=== PATIENT | female | born 1965 | race Caucasian/White ===

== ENCOUNTER 2021-01-09 14:14 | Emergency (ER) | payer OTHER, SELFPAY ==
--- NOTE | ~2021-01-09 | US_ITS ---
EXAMINATION: US VENOUS ULTRASOUND WITH DOPPLER LOWER EXTREMITY, RIGHT CLINICAL INFORMATION: Calf pain. Evaluate for DVT. COMPARISON: None TECHNIQUE: Ultrasound of the deep veins is performed from the hip to the calf with compression sonography and color and pulse Doppler assessment. Spectral analysis with color-flow imaging is performed. FINDINGS: There is normal venous compression and respiratory variation and augmented flow. The visualized common femoral vein, superficial femoral vein, profunda femoral vein, popliteal vein, and the trifurcation region shows no evidence of deep venous thrombosis. There is no significant popliteal fossa cyst. If the patient's symptoms persist, followup ultrasound in 5 days 7 days might be of value to exclude proximal propagation from a non-visualized calf vein. US/US venous duplex LE RT IMPRESSION: No DVT demonstrated in the right lower extremity.
[2021-01-09 14:23] VITALS: BP 104/65; PULSE 74; RESP 16; O2SAT 98; BMI 38.7
--- NOTE | 2021-01-09 16:26 | ED.GENADULT ---
HPI - General Adult General Chief complaint: Extremity Injury, Lower Stated complaint: rt leg pain Time Seen by Provider: 01/09/21 15:04 History of Present Illness HPI narrative: Patient complains of right lower leg pain as well as chronic sciatica pain radiating into the right leg but right now the new pain in the lower right leg is different from her previous sciatica and feels worse in the back of the right lower leg, she has no new injury no numbness or weakness, no fevers no swelling Related Data Previous Rx's Medication Instructions Recorded cyclobenzaprine 5 mg tablet 5 mg PO TID PRN #14 tab 01/09/21 ibuprofen 600 mg tablet 600 mg PO Q6H PRN #20 tab 01/09/21 oxycodone-acetaminophen 5 mg-325 1 tab PO Q4-6H PRN #10 tab 01/09/21 mg tablet (Percocet) Allergies Allergy/AdvReac Type Severity Reaction Status Date / Time No Known Allergies Allergy Unverified 01/27/20 14:47 Review of Systems Review of Systems: Positive for back pain and right lower leg pain Negatives are no fever no chills no dizziness no weakness no headache no neck pain no chest pain no shortness of breath no abdominal pain no nausea or vomiting, no dysuria no incontinence no changes to bowel or bladder no skin rash Yes all other systems are reviewed and are negative PMFSH Past Medical History Source: nursing notes reviewed Medical History (Updated 01/10/21 @ 00:02 by Aneesh Calhoun) Asthma Sleep apnea Social History Social History Advance Directives: Yes Advance Directives Information Provided: Yes Advance Directives on File: No Physical Exam Vital Signs: Vital Signs: Last Vital Signs Pulse 74 01/09/21 14:23 Resp 16 01/09/21 14:23 BP 104/65 01/09/21 14:23 Pulse Ox 98 01/09/21 14:23 Body Mass Index 38.7 General appearance no acute distress Head is normocephalic atraumatic Neck is supple Respiratory no distress Chest clear to auscultation bilateral Abdomen soft nontender The back had right lower lumbar paraspinal tenderness and right gluteal tenderness, skin was normal, pain reproduced with movement, no focal bony tenderness Extremities full range of motion x4 The right lower extremity was normal in appearance with full range of motion in all joints, skin was normal, there was no swelling but there was right posterior lower leg tenderness Neuro no focal motor sensory deficit Skin no rash Course Course Course Narrative: Ultrasound of the right leg was negative for DVT There is no sign of any skin infection in the right leg We are treating her sciatica which may be the cause of this pain with analgesics and muscle relaxer She is advised to follow with primary doctor and if right lower leg worsens in any way or get swollen she can return any time for re-evaluation Discharge Plan Discharge Clinical Impression: Sciatica, Pain in right leg Patient Disposition: Home, Self-Care Additional Instructions: Ultrasound is negative for blood clot Pain is likely from your sciatica radiating into the right leg Follow closely with primary care doctor for further evaluation Return any time if worse Prescriptions: New oxycodone-acetaminophen [Percocet] 5-325 mg tablet 1 tab PO Q4-6H PRN (Reason: pain) Qty: 10 RF: 0 ibuprofen 600 mg tablet 600 mg PO Q6H PRN (Reason: pain) Qty: 20 RF: 0 cyclobenzaprine 5 mg tablet 5 mg PO TID PRN (Reason: muscle spasm) Qty: 14 RF: 0 Interventions: ED Discharge Assessment Last Done: 01/09/21 16:48 Discharge Date/Time: 01/09/21 16:49
[2021-01-09] MEDS: Ketorolac Tromethamine 15 MG/ML VIAL 30 MG IM (16:44)
== END 2021-01-09 16:49 | disposition home or self-care (01) ==
PROVIDERS: Emergency Provider Emergency Medicine; PCP Internal Medicine
DX: M54.41 Lumbago with sciatica, right side (principal); M79.661 Pain in right lower leg
CPT/HCPCS: 93971; 96372; 99283; 99284; J1885

== ENCOUNTER 2021-03-28 12:19 | Emergency (ER) | payer OTHER, SELFPAY ==
--- NOTE | ~2021-03-28 | CT_ITS ---
EXAMINATION: CT ABDOMEN AND PELVIS WITHOUT CONTRAST CLINICAL INFORMATION: Left flank pain with dark urine COMPARISON: December 28, 2018 TECHNIQUE: Multidetector volumetric imaging was performed from the superior aspect of the liver through the pubic symphysis. Sagittal and coronal reformatted images were obtained on the technologist's workstation. This CT examination was performed using dose optimization techniques as appropriate, variously including the following: *Automated exposure control *Adjustment of mA and/or kV according to patient size (this includes techniques or standardized protocols for targeted exams where dose is matched to indication/reason for exam; i.e. extremities or head) *Use of iterative reconstruction technique DLP: 740 mGy-cm FINDINGS: LUNG BASES: The visualized lung bases are unremarkable. No pleural or pericardial effusion. LIVER, GALLBLADDER, AND BILIARY TREE: There is a 6 mm low-density lesion seen within segment 6 of the liver which may represent a cyst. There is a 4 mm low-density lesion seen at the dome of the diaphragm which may represent a cyst. No intrahepatic bile duct dilatation is appreciated. The gallbladder is unremarkable with no evidence of radiopaque gallstones, gallbladder wall thickening, or obvious pericholecystic inflammatory changes. PANCREAS: Unremarkable. SPLEEN: Unremarkable. ADRENAL GLANDS: Unremarkable. KIDNEYS AND URETERS: The kidneys are normal in size, shape, and attenuation. No hydronephrosis, hydroureter, or calculi seen. No perinephric stranding. BLADDER: Unremarkable. GASTROINTESTINAL TRACT: No dilated loops of large or small bowel. No free air or free fluid. No evidence of acute diverticulitis. No evidence of acute appendicitis. ABDOMINAL WALL: No significant hernia is appreciated. LYMPH NODES: No lymphadenopathy appreciated. VASCULAR: Unremarkable. PELVIC VISCERA: Unremarkable. OSSEOUS STRUCTURES: No acute destructive bony lesions identified. CT/CT abdomen pelvis wo con IMPRESSION: No evidence of obstructive uropathy. No evidence of ileus or obstruction. No evidence of acute diverticulitis.
[2021-03-28 12:55] VITALS: BP 157/92; PULSE 79; RESP 18; TEMP 36.8; O2SAT 98; BMI 38.7
--- NOTE | 2021-03-28 13:18 | ED.ABDPAIN ---
HPI - Abdominal Pain General Chief Complaint: Abdominal Pain Stated Complaint: back pain Time Seen by Provider: 03/28/21 13:18 Source: patient Mode of arrival: ambulatory Limitations: no limitations History of Present Illness HPI narrative: left flank pain and abdominal pain with dark urine. Pain started yesterday, now increased pain. MD elicited complaint: abdominal pain and flank pain Onset (ago): day(s) Pain Consistency: intermittent Location: LLQ and L flank Severity: mild Quality: stabbing Associated symptoms: other (diarrhea) Related Data Previous Rx's Medication Instructions Recorded cyclobenzaprine 5 mg tablet 5 mg PO TID PRN #14 tab 01/09/21 ibuprofen 600 mg tablet 600 mg PO Q6H PRN #20 tab 01/09/21 oxycodone-acetaminophen 5 mg-325 1 tab PO Q4-6H PRN #10 tab 01/09/21 mg tablet (Percocet) naproxen 500 mg tablet (Naprosyn) 500 mg PO BID #20 tab 03/28/21 Allergies Allergy/AdvReac Type Severity Reaction Status Date / Time No Known Allergies Allergy Unverified 01/27/20 14:47 Review of Systems Constitutional: Reports no additional constitutional complaints Eyes: Reports no additional eye complaints Denies dizziness Cardiovascular: Reports no additional cardiovascular complaints Respiratory: Reports as per HPI Gastrointestinal: Reports no additional gastrointestinal complaints Genitourinary: Reports no additional female genitourinary complaints Musculoskeletal: Reports no additional musculoskeletal complaints Skin/Breast: Denies rash Reports system reviewed and no additional complaints, except as documented, Denies dizziness and Denies Sensory deficit (Neuro) Psychiatric: Denies anxiety Physical Exam Vital Signs: Vital Signs: Last Vital Signs Temp 97.9 F 03/28/21 15:12 Pulse 65 03/28/21 15:12 Resp 16 03/28/21 15:12 BP 130/55 L 03/28/21 15:12 Pulse Ox 99 03/28/21 15:12 Body Mass Index 38.7 Const: Other: appearing uncomfortable Nutritional Appearance: obese Orientation/consciousness: oriented to person and patient oriented x3 Limitations: no limitations HENMT: Head: Yes normal to inspection Ears: external ears normal General nose exam: Normal external nose present Mouth: Normal oral and palatal mucosa present and oropharynx normal Throat: Yes posterior oropharynx normal Eyes: General: appearance normal, both eyes and all related structures Neck: Other: supple Neck: Yes normal visual inspection Chest: Chest palpation & inspection: normal inspection of the chest Resp: Auscultation: clear to auscultation bilaterally Cardio: Jugular venous distension: no JVD Rate: regular rate Rhythm: regular rhythm Heart sounds: S1 normal heart sound present and S2 normal heart sound present GI: Other: abdominal exam completely nontender Inspection: Yes normal to inspection Palpation (GI): Soft to palpation, nontender and No hepatosplenomegaly present Auscultation: normal bowel sounds Back/Spine/Pelvis: Other: left CVAT Skin: General skin exam: no rashes or lesions noted Neuro: General: oriented to person and patient oriented x3 Cranial nerves: Yes CN's II-XII intact bilaterally Motor exam (neuro): 5/5 motor strength present throughout Sensory Exam: No Sensory deficit (Neuro) Extrem: General: Yes normal to inspection Psych: Appearance: grossly normal Course Reevaluation(s) Reevaluation #1: no evidence of UTI, renal colic or diverticulitis, will dc on nsaids Time: 15:47 MDM - Abdominal Pain Lab Data Labs: Lab Results 03/28/21 Range/Units 13:40 Urine Color YELLOW Urine Appearance CLEAR Urine pH 6.5 (5.0-8.0) Ur Specific [place] 1.015 (1.005-1.025) Urine Protein NEG (NEG-TRACE) MG/DL Urine Glucose (UA) NEG (NEG) MG/DL Urine Ketones NEG (NEG) MG/DL Urine Blood 1+ H (NEG) Urine Nitrite NEG (NEG) Ur Leukocyte Esterase NEG (NEG) Urine RBC 0-2 (0) /HPF Urine WBC 0-2 (0-4) /HPF Ur Squamous Epith Cells TRACE /LPF Urine Bacteria TRACE /LPF Imaging Data CT scan - abdomen: Radiologist's impression: IMPRESSION: No evidence of obstructive uropathy. ? No evidence of ileus or obstruction. ? No evidence of acute diverticulitis.? Discharge Plan Discharge Clinical Impression: Acute flank pain Abdominal pain Qualifiers: Abdominal location: left lower quadrant Qualified Code(s): R10.32 - Left lower quadrant pain Patient Disposition: Home, Self-Care Instructions: Abdominal Pain (ED), Flank Pain (ED) Prescriptions: New naproxen [Naprosyn] 500 mg tablet 500 mg PO BID Qty: 20 RF: 0 No Action oxycodone-acetaminophen [Percocet] 5-325 mg tablet 1 tab PO Q4-6H PRN (Reason: pain) Qty: 10 RF: 0 ibuprofen 600 mg tablet 600 mg PO Q6H PRN (Reason: pain) Qty: 20 RF: 0 cyclobenzaprine 5 mg tablet 5 mg PO TID PRN (Reason: muscle spasm) Qty: 14 RF: 0 Referrals: Physician,Unknown J [Primary Care Provider] - 1 week [facility] Past Medical History Medical History Asthma Sleep apnea Social History Social History Advance Directives: No Advance Directives Information Provided: Yes
[2021-03-28 13:19] VITALS: BP 151/79; PULSE 82; RESP 20; TEMP 36.6; O2SAT 100
[2021-03-28] MEDS: Ketorolac Tromethamine 60 MG/2 ML VIAL IM (13:40)
[2021-03-28 13:55] LABS: Appearance Urine CLEAR; Color Urine YELLOW; Glucose Urine UA NEG (NEG); Leukocyte Esterase Urine NEG (NEG); Nitrite Urine NEG (NEG); PH 6.5 (5.0-8.0); Specific Gravity - Urine 1.015 (1.005-1.025); UACC Culture Trigger NO; Urine Blood 1+ (NEG); Urine Ketones NEG (NEG); Urine Protein NEG (NEG-TRACE)
[2021-03-28 14:19] LABS: RBC Urine 0-2 /HPF (0); Squamous Epithelial Cell Urine TRACE /LPF; WBC Urine 0-2 /HPF (0-4)
[2021-03-28 14:20] LABS: Bacteria Urine TRACE /LPF
[2021-03-28 15:12] VITALS: BP 130/55; PULSE 65; RESP 16; TEMP 36.6; O2SAT 99
== END 2021-03-28 16:30 | disposition home or self-care (01) ==
PROVIDERS: Emergency Provider Emergency Medicine
DX: R10.32 Left lower quadrant pain (principal)
CPT/HCPCS: 74176; 81001; 81003; 96372; 99284; J1885

== ENCOUNTER 2021-08-11 19:43 | Emergency (ER) | payer OTHER, SELFPAY ==
--- NOTE | ~2021-08-11 | XR_ITS ---
EXAMINATION: XR CHEST CLINICAL INFORMATION: Shortness of breath COMPARISON: Chest radiograph 12/07/2016, CT abdomen and pelvis 03/28/2021 TECHNIQUE: Frontal view of the chest was obtained. FINDINGS: There is a question of a 1.6 cm long nodule overlying the anterior right third rib end. This may be a compilation of shadows, but the scan is recommended to exclude a mass lesion. No other significant abnormality is noted involving the heart, lungs, mediastinum, bony thorax or soft tissues. XR/XR chest 1V IMPRESSION: Question of lung nodule right middle lobe as described above. CT scan of the chest is recommended for further relation.
--- NOTE | ~2021-08-11 | CT_ITS ---
EXAMINATION: CT CHEST WITHOUT CONTRAST CLINICAL INFORMATION: Question nodularity COMPARISON: Chest film same day TECHNIQUE: Multidetector volumetric CT imaging of the chest was done. Axial MIP volume rendering provided. Sagittal and coronal reformatted images were obtained. This CT examination was performed using dose optimization techniques as appropriate, variously including the following: *Automated exposure control *Adjustment of mA and/or kV according to patient size (this includes techniques or standardized protocols for targeted exams where dose is matched to indication/reason for exam; i.e. extremities or head) *Use of iterative reconstruction technique DLP: 321 mGy-cm FINDINGS: The thoracic inlet is within normal limits. The axillary regions are unremarkable. Partially visualized upper abdominal structures within normal limits. Centrally some mildly prominent nodes are noted. No bulky adenopathy. This is a noncontrast study but the hilar regions do not appear pathologically enlarged. Imaging lung johnson. Right lung; Reticular nodular and groundglass opacities in the right midlung consistent with infiltrate. Below this level additional similar opacities are noted consistent with infiltrate as well. Some of these areas are subtly nodular but given the entire appearance most consistent with infiltrate. Left lung; No infiltrate or effusion. Grossly clear lung. CT/CT chest wo con IMPRESSION: I believe the opacity on chest x-ray likely represents a reticulonodular and groundglass and patchy infiltrate in the right midlung zone. Another area is seen inferior to this. As described there is some underlying nodularity here but given the overall appearance findings suggest infiltrate. Follow-up study is however recommended to assess for resolution
[2021-08-11 20:25] VITALS: BP 152/62; PULSE 84; RESP 16; TEMP 36.6; O2SAT 98; BMI 39.7
--- NOTE | 2021-08-11 20:30 | ECG_ITS ---
Test Reason : DYSPNEA Blood Pressure : / mmHG Vent. Rate : 081 BPM Atrial Rate : 081 BPM P-R Int : 138 ms QRS Dur : 082 ms QT Int : 360 ms P-R-T Axes : 040 -04 007 degrees QTc Int : 418 ms Normal sinus rhythm Normal ECG When compared with ECG of 23-OCT-2005 14:46, No significant change was found Referred By: Generic ED Physician Electronically Signed By:ANGELA OSCAR
--- NOTE | 2021-08-11 21:16 | ED.SOB ---
HPI - SOB/Dyspnea General Chief Complaint: Dyspnea Stated Complaint: asthma,sob Time Seen by Provider: 08/11/21 21:15 Source: patient Mode of arrival: ambulatory History of Present Illness HPI Narrative: 55-year-old female with history of hypertension, asthma, migraines who comes in with increasing shortness of breath with headache and chest tightness for 3 days with subjective fevers but denies any GI or symptoms and also describes dry cough, sore throat but denies any ear pain. Related Data Previous Rx's Medication Instructions Recorded cyclobenzaprine 5 mg tablet 5 mg PO TID PRN #14 tab 01/09/21 ibuprofen 600 mg tablet 600 mg PO Q6H PRN #20 tab 01/09/21 oxycodone-acetaminophen 5 mg-325 1 tab PO Q4-6H PRN #10 tab 01/09/21 mg tablet (Percocet) naproxen 500 mg tablet (Naprosyn) 500 mg PO BID #20 tab 03/28/21 doxycycline hyclate 100 mg tablet 100 mg PO BID 7 Days #14 tab 08/12/21 Allergies Allergy/AdvReac Type Severity Reaction Status Date / Time No Known Allergies Allergy Unverified 01/27/20 14:47 Review of Systems Review of Systems: Pertinent positives and negatives as stated in HPI 10 point review of systems is otherwise negative. PMFSH Past Medical History Source: nursing notes reviewed Medical History Asthma Sleep apnea Social History Social History Advance Directives: No Patient : No Physical Exam Vital Signs: Vital Signs: Last Vital Signs Temp 98 F 08/11/21 20:25 Pulse 98 08/12/21 00:03 Resp 18 08/12/21 00:03 BP 115/68 08/12/21 00:00 Pulse Ox 100 08/12/21 00:00 BMI result Body Mass Index 39.7 VITAL SIGNS: Reviewed. GENERAL: Well developed, well nourished, in no acute distress. HEAD: Normocephalic/atraumatic EYES: PERRLA, EOMI EARS: Ext canals without abnormality, TMs non-bulging and non-erythematous NOSE: Nasal congestion OROPHARYNX: no oral lesions noted, posterior pharynx clear and non-erythematous without noted tonsillar enlargement/erythema/exudates NECK: Supple, no adenopathy LUNGS: Increased work of breathing, mild tachypnea, good inspiratory effort without wheeze/rhonchi/rales. SpO2<98> CARDIOVASCULAR: Regular rate and rhythm without noted murmurs, no JVD or lower extremity edema. ABDOMEN: Soft, non-tender, non-distended with bowel sounds. MUSCULOSKELETAL: No tenderness, deformities, or effusions noted on gross inspection. EXTREMITIES: No cyanosis, clubbing or edema. SKIN: Inspection of the skin reveals no rashes NEUROLOGIC: Alert and oriented x 4. Strength and sensation to light touch were grossly intact x 4. Course Course Course Narrative: 55-year-old female with history and clinical presentation consistent with viral syndrome and suspect some form of COVID/influenza. Although patient does not appear to be wheezing and good breath sounds are auscultated will provide albuterol treatment as well as cough suppressant for symptom relief. Review of all investigations most consistent with pneumonia. CRP is elevated and CT scan demonstrates infiltrate and taken in contacts with clinical and history patient will be treated with a course of doxycycline. All results given to her at bedside and she was instructed follow-up with her primary care provider on Friday morning. MDM - SOB/Dyspnea Lab Data Result diagrams: 08/11/21 21:41 08/11/21 21:41 Labs: Lab Results 08/11/21 08/11/21 08/11/21 Range/Units 21:41 21:41 21:41 WBC 5.5 (4.8-10.8) X10*3/uL RBC 4.29 (4.20-5.50) X10*6/uL Hgb 12.8 (12.0-16.0) g/dl Hct 39.2 (37.0-47.0) % MCV 91.4 (80.0-98.0) fL MCH 29.8 (27.0-33.0) pg MCHC 32.7 (31.0-35.0) g/dl RDW 12.8 (11.0-16.0) % Plt Count 258 (160-400) X10*3/uL MPV 9.6 (9.4-12.3) fL Immature Gran % (Auto) 0.4 (0.0-0.4) % Neut % (Auto) 69.3 (45-73) % Lymph % (Auto) 19.0 L (20-40) % [place] % (Auto) 9.1 (2-11) % Eos % (Auto) 1.8 (0-4) % Baso % (Auto) 0.4 (0-2) % Lymph # (Auto) 1.0 L (1.2-4.9) X10*3/uL [place] # (Auto) 0.5 (0.1-1.2) X10*3/uL Eos # (Auto) 0.1 (0.0-0.4) X10*3/uL Baso # (Auto) 0.0 (0.0-0.2) X10*3/uL Abs Immat Gran (auto) 0.02 (0.00-0.03) X10*3/uL Absolute Neuts (auto) 3.8 (2.0-8.3) x10*3/uL Absolute Nucleated RBC 0.000 (0.0-0.012) X10*3/uL Nucleated RBC % (auto) 0.0 (0.0-0.2) /100WBC Sodium 139 (135-145) mmol/L Potassium 4.0 (3.3-5.1) mmol/L Chloride 104 (96-108) mmol/L Carbon Dioxide 28 (22-29) mmol/L Anion Gap 11 L (12-20) BUN 11 (9-16) mg/dL Creatinine 0.82 (0.5-1.4) mg/dL Estim Creat Clear Calc 100.5 Estimated GFR > 60 Random Glucose 111 (60-115) mg/dL Calcium 9.3 (8.4-10.2) mg/dL Troponin I High Sens 4.0 (<3.5-17.0) ng/L C-Reactive Protein 2.10 H (< or = 0.50) mg/dL Influenza Type A (PCR) (Negative) Influenza Type B (PCR) (Negative) RSV RNA Qual (PCR) (Negative) SARS-CoV-2 RNA (RT-PCR) (Negative) 08/11/21 Range/Units 21:41 WBC (4.8-10.8) X10*3/uL RBC (4.20-5.50) X10*6/uL Hgb (12.0-16.0) g/dl Hct (37.0-47.0) % MCV (80.0-98.0) fL MCH (27.0-33.0) pg MCHC (31.0-35.0) g/dl RDW (11.0-16.0) % Plt Count (160-400) X10*3/uL MPV (9.4-12.3) fL Immature Gran % (Auto) (0.0-0.4) % Neut % (Auto) (45-73) % Lymph % (Auto) (20-40) % [place] % (Auto) (2-11) % Eos % (Auto) (0-4) % Baso % (Auto) (0-2) % Lymph # (Auto) (1.2-4.9) X10*3/uL [place] # (Auto) (0.1-1.2) X10*3/uL Eos # (Auto) (0.0-0.4) X10*3/uL Baso # (Auto) (0.0-0.2) X10*3/uL Abs Immat Gran (auto) (0.00-0.03) X10*3/uL Absolute Neuts (auto) (2.0-8.3) x10*3/uL Absolute Nucleated RBC (0.0-0.012) X10*3/uL Nucleated RBC % (auto) (0.0-0.2) /100WBC Sodium (135-145) mmol/L Potassium (3.3-5.1) mmol/L Chloride (96-108) mmol/L Carbon Dioxide (22-29) mmol/L Anion Gap (12-20) BUN (9-16) mg/dL Creatinine (0.5-1.4) mg/dL Estim Creat Clear Calc Estimated GFR Random Glucose (60-115) mg/dL Calcium (8.4-10.2) mg/dL Troponin I High Sens (<3.5-17.0) ng/L C-Reactive Protein (< or = 0.50) mg/dL Influenza Type A (PCR) NEGATIVE (Negative) Influenza Type B (PCR) NEGATIVE (Negative) RSV RNA Qual (PCR) NEGATIVE (Negative) SARS-CoV-2 RNA (RT-PCR) NEGATIVE (Negative) ECG Data Attestation: I personally reviewed and interpreted this ECG as follows: Prior ECG tracings: available for review Interpretation: NSR, HR-81, no STEMI, CA/QRS/QTC are within normal limits. Discharge Plan Discharge Clinical Impression: Community acquired pneumonia Patient Disposition: Home, Self-Care Instructions: Community Acquired Pneumonia (ED) Additional Instructions: 1. Reanudar todos los medicamentos caseros seg?n lo prescrito. 2. Recomendar Tylenol/ibuprofeno de venta dalia seg?n sea necesario para temperaturas superiores a 100.4. Adem?s, recomiende medicamentos para la tos de venta dalia manan NyQuil. 3. Complete todo el ciclo de antibi?ticos que le hayan recetado. 4. Comun?quese con ascencio proveedor de atenci?n primaria el lunes por la ma?nunu para pallavi reevaluaci?n. Regrese a la nabil de emergencias si los s?ntomas empeoran. Prescriptions: New doxycycline hyclate 100 mg tablet 100 mg PO BID 7 Days Qty: 14 0RF No Action oxycodone-acetaminophen [Percocet] 5-325 mg tablet 1 tab PO Q4-6H PRN (Reason: pain) Qty: 10 0RF Rx Instructions: Narcotic, no driving for 6 hours after taking this medication ibuprofen 600 mg tablet 600 mg PO Q6H PRN (Reason: pain) Qty: 20 0RF cyclobenzaprine 5 mg tablet 5 mg PO TID PRN (Reason: muscle spasm) Qty: 14 0RF Rx Instructions: This medication may cause drowsiness, no driving for 8 hours after taking naproxen [Naprosyn] 500 mg tablet 500 mg PO BID Qty: 20 0RF Print Language: Vietnamese
[2021-08-11] MEDS: Albuterol Sulfate (0.083%) 2.5 MG/3 ML VIAL.NEB 5 MG INHALE (21:26)
[2021-08-11 21:29] VITALS: PULSE 85; RESP 16; O2SAT 99
[2021-08-11 21:46] LABS: MANUAL DIFF FLAG NO
[2021-08-11 22:02] LABS: Basophils Percent Auto 0.4 % (0-2); Eosinophils Absolute Auto 0.1 X10*3/uL (0.0-0.4); Eosinophils Percent Auto 1.8 % (0-4); Hematocrit 39.2 % (37.0-47.0); Hemoglobin 12.8 g/dl (12.0-16.0); Imm Gran Abs Auto 0.02 X10*3/uL (0.00-0.03); Imm Gran Pct Auto 0.4 % (0.0-0.4); Mean Corpuscular HGB Conc 32.7 g/dl (31.0-35.0); Mean Corpuscular Hemoglobin 29.8 pg (27.0-33.0); Mean Corpuscular Volume 91.4 fL (80.0-98.0); Mean Platelet Volume 9.6 fL (9.4-12.3); Monocytes Absolute Auto 0.5 X10*3/uL (0.1-1.2); Monocytes Percent Auto 9.1 % (2-11); Neutrophils Absolute Auto 3.8 x10*3/uL (2.0-8.3); Neutrophils Percent Auto 69.3 % (45-73); Platelet Count 258 X10*3/uL (160-400); Red Blood Count 4.29 X10*6/uL (4.20-5.50); Red Cell Distribution Width 12.8 % (11.0-16.0); White Blood Count 5.5 X10*3/uL (4.8-10.8)
[2021-08-11] MEDS: Benzonatate 100 MG CAPSULE 200 MG PO (22:06)
[2021-08-11] MEDS: Acetaminophen 325 MG TABLET 975 MG PO (22:06)
[2021-08-11 22:09] LABS: Anion Gap 11 (12-20); Blood Urea Nitrogen 11 mg/dL (9-16); Calcium 9.3 mg/dL (8.4-10.2); Carbon Dioxide 28 mmol/L (22-29); Chloride 104 mmol/L (96-108); Creatinine Clr Calc Pharmacy 100.5; Estimated Glomerular Filt Rate > 60; Glucose Random 111 mg/dL (60-115); Sodium 139 mmol/L (135-145)
[2021-08-11] MEDS: Ibuprofen 400 MG TABLET PO (22:20)
[2021-08-11 22:29] LABS: Influenza A PCR NEGATIVE (Negative); Influenza B PCR NEGATIVE (Negative); Resp Syncy Virus RNA Qual PCR NEGATIVE (Negative); SARS COV2 PCR INHOUSE NEGATIVE (Negative)
[2021-08-11 23:54] VITALS: BP 114/42; PULSE 92; RESP 18; O2SAT 98
[2021-08-11 23:56] VITALS: BP 114/42; PULSE 92; PULSE 96; RESP 18
[2021-08-12] VITALS: BP 115/68; PULSE 105; RESP 18; O2SAT 100
[2021-08-12] MEDS: Albuterol Sulfate (0.083%) 2.5 MG/3 ML VIAL.NEB 5 MG INHALE (00:02)
[2021-08-12 00:03] VITALS: PULSE 98; RESP 18; O2SAT 95
[2021-08-12] MEDS: predniSONE 10 MG TABLET 50 MG PO (00:24)
[2021-08-12 01:14] VITALS: BP 120/42; PULSE 95; RESP 15; O2SAT 98
== END 2021-08-12 01:17 | disposition home or self-care (01) ==
PROVIDERS: Emergency Provider Student in an Organized Health Care Education/Training Program
DX: J18.8 Other pneumonia, unspecified organism (principal); Z20.822 Contact with and (suspected) exposure to COVID-19; R06.02 Shortness of breath; I10 Essential (primary) hypertension
CPT/HCPCS: 0241U; 36415; 71045; 71250; 80048; 84484; 85025; 86140; 93005; 99284

== ENCOUNTER 2022-07-31 08:52 | Emergency (ER) | payer OTHER, SELFPAY ==
[2022-07-31 10:14] VITALS: BP 152/80; PULSE 68; RESP 18; TEMP 36.3; O2SAT 100; BMI 37.1
[2022-07-31] MEDS: Ibuprofen 600 MG TABLET PO (10:31)
--- NOTE | 2022-07-31 11:45 | ED.BACK ---
HPI - Back Pain/Injury General Chief Complaint: Back Pain/Injury Stated Complaint: lower back pain Time Seen by Provider: 07/31/22 11:45 Source: patient Mode of arrival: ambulatory Limitations: no limitations History of Present Illness HPI Narrative: Patient is a 56 year old assigned female at with a history of low back pain presenting to the emergency department today with an acute flare of chronic back pain. Patient states that she has a history of this but is having another episode of low back pain. Patient states that she used to have a student career development specialist here that she would like to see again. Patient denies any dizziness, lightheadedness, abdominal pain, nausea, vomiting, fever, chills, blurry vision, double vision, loss of vision, chest pain, difficulty breathing, shortness of breath, night sweats, pain with urination, increased urinary frequency, increased urinary urgency, blood in her urine or stool, syncope or a near syncopal episode, recent trauma or falls, bowel incontinence, bladder incontinence, bowel retention, bladder retention, or any other complaints at this time. MD elicited complaint: back pain Pertinent past history: prior back pain Timing: constant Exacerbating factors: none Relieving factors: none Associated symptoms: denies other symptoms Work related injury: No Related Data Previous Rx's Medication Instructions Recorded cyclobenzaprine 5 mg tablet 5 mg PO TID PRN muscle spasm #14 01/09/21 tabs ibuprofen 600 mg tablet 600 mg PO Q6H PRN pain #20 tabs 01/09/21 oxycodone-acetaminophen 5 mg-325 1 tab PO Q4-6H PRN pain #10 tabs 01/09/21 mg tablet (Percocet) naproxen 500 mg tablet (Naprosyn) 500 mg PO BID #20 tabs 03/28/21 doxycycline hyclate 100 mg tablet 100 mg PO BID 7 days #14 tabs 08/12/21 cyclobenzaprine 5 mg tablet 5 mg PO TID PRN back pain 7 days 07/31/22 #21 tabs prednisone 20 mg tablet 20 mg PO DAILY 7 days #7 tabs 07/31/22 Allergies Allergy/AdvReac Type Severity Reaction Status Date / Time No Known Allergies Allergy Unverified 01/27/20 14:47 Review of Systems Constitutional: Constitutional: Reports no additional constitutional complaints, Denies chills, Denies fever(s) and Denies night sweats Eyes: Eyes: Reports no additional eye complaints, Denies blurry vision, Denies change in vision, Denies diplopia, Denies eye discharge, Denies loss of vision and Denies eye pain ENT: Denies dizziness Cardiovascular: Cardiovascular: Reports no additional cardiovascular complaints, Denies chest pain, Denies lightheadedness, Denies Loss of Consciousness and Denies dyspnea Respiratory: Respiratory: Reports no additional respiratory complaints and Denies dyspnea Gastrointestinal: Gastrointestinal: Reports no additional gastrointestinal complaints, Denies abdominal pain, Denies melena, Denies hematochezia, Denies change in bowel habits and Denies change in stool character Genitourinary: Genitourinary: Denies hematuria, Denies urinary frequency, Denies dysuria, Denies urinary incontinence, Denies urinary hesitancy and Denies urinary urgency Musculoskeletal: Musculoskeletal: Reports no additional musculoskeletal complaints, Reports back pain, Denies numbness and Denies tingling Neurologic: Denies dizziness, Denies loss of vision, Denies numbness and Denies tingling Psychiatric: Psychiatric: Reports no additional psychiatric complaints Endocrine: Endocrine: Reports no additional endocrine complaints Hematologic/Lymphatic: Hematologic/Lymphatic: Reports no additional hematologic/lymphatic complaints Allergic/Immunologic: Allergic/Immunologic: Reports no additional allergic/immunologic complaints PMFSH Past Medical History Attestation statement: The following information was validated with the patient. Source: old records reviewed and nursing notes reviewed Medical History Asthma Sleep apnea Social History Social History Advance Directives: No Advance Directives Information Provided: Yes Physical Exam Vital Signs: Vital Signs: Last Vital Signs Temp 97.4 F 07/31/22 10:14 Pulse 68 07/31/22 10:14 Resp 18 07/31/22 10:14 BP 152/80 H 07/31/22 10:14 Pulse Ox 100 07/31/22 10:14 O2 Del Method 07/31/22 10:14 BMI result Body Mass Index 37.1 Const: General: cooperative, no acute distress, alert and awake Nutritional Appearance: well nourished Orientation/consciousness: patient oriented x3 Limitations: no limitations HEENT: Head: Yes normal to inspection and Yes atraumatic Ears: hearing grossly normal bilaterally and external ears normal General nose exam: Normal external nose present, no nasal discharge noted and no epistaxis Face and sinus: Yes normal facial exam, No abrasion and No laceration Mouth: Normal oral and palatal mucosa present, no drooling and no muffled voice Eyes: General: appearance normal, both eyes and all related structures Periorbital: periorbital findings normal Eyelids: Yes eyelids normal Conjunctivae: conjunctivae normal Pupils: Equal, round and reactive pupils present EOM: EOMs intact bilaterally Neck: Neck: Yes normal visual inspection, Yes full ROM and Yes no lymphadenopathy Chest: Chest palpation & inspection: normal inspection of the chest Resp: Effort & Inspection: normal respiratory effort and able to speak in complete sentences Auscultation: clear to auscultation bilaterally Cardio: Rate: regular rate Rhythm: regular rhythm GI: Inspection: Yes normal to inspection Palpation (GI): Soft to palpation, not firm, nontender, no guarding and not rigid : General: Yes no CVA tenderness Back/Spine/Pelvis: Back: no CVA tenderness Cervical Spine: normal cervical lordosis and cervical ROM normal Thoracic/Lumbar Spine: thoraco-lumbar ROM normal Pelvis: no pain with anterior-posterior compression Neuro: General: patient oriented x3 and moves all extremities Cranial nerves: Yes Equal, round and reactive pupils present Cognition (Neuro): normal cognition Motor exam (neuro): 5/5 motor strength present throughout Sensory Exam: Normal double simultaneous stimulation for sensation Coordination: [id number] test normal Extrem: General: Yes normal to inspection, Yes full ROM and Yes capillary refill normal Psych: Appearance: grossly normal Mental Status: mental status grossly normal Affect: normal affect Attitude: cooperative Thought process: Normal thought process present Thought content: Normal thought content present Insight: Good insight present (Psych) Medications Administered Discontinued Medications Generic Name Dose Route Start Last Admin Trade Name Freq PRN Reason Stop Dose Admin Cyclobenzaprine HCl 10 mg 07/31/22 11:48 07/31/22 11:58 Cyclobenzaprine Hcl 10 Mg Tablet PO 07/31/22 11:49 10 mg ONCE ONE Administration Ibuprofen 600 mg 07/31/22 10:28 07/31/22 10:31 Ibuprofen 600 Mg Tablet PO 07/31/22 10:29 600 mg ONCE ONE Administration Ketorolac Tromethamine 15 mg 07/31/22 11:48 07/31/22 11:57 Ketorolac Tromethamine 15 Mg/Ml Vial IM 07/31/22 11:49 15 mg ONCE ONE Administration Methylprednisolone Sodium Succinate 60 mg 07/31/22 11:48 07/31/22 11:58 Methylprednisolone Sod Succ 125 Mg/2 Ml Vial IM 07/31/22 11:49 60 mg ONCE ONE Administration Medical Decision Making Medical Decision Making [facility] Narrative: Patient is a 56 year old assigned female at with a history of chronic low back pain presenting to the emergency department today with an acute flare of chronic back pain. Patient's physical exam was unremarkable. I explained my physical exam findings to the patient. I answered all questions asked by the patient. Patient received IM Toradol, IM Solu-medrol, and PO Flexeril which she stated helped her pain significantly. I stressed the importance of the patient taking her medication as prescribed. I stressed the importance of the patient following up with her primary care provider and a student career development specialist. I stressed the importance of the patient returning to the emergency department immediately if her symptoms were to worsen or if she were to develop any dizziness, shortness of breath, difficulty breathing, chest pain, blurry vision, loss of vision, nausea, vomiting, abdominal pain, fever, chills, back pain, or any other complaints. Patient verbalized agreement and understanding with this treatment plan and discharge. Differential Diagnosis Differential Diagnoses: The differential diagnosis associated with the presentation includes low back pain Discharge Plan Discharge Clinical Impression: Low back pain Patient Disposition: Home, Self-Care Instructions: Chronic Back Pain (DC) Additional Instructions: Follow up with your primary care provider and a pain specialist. Return to the emergency department immediately if your symptoms worsen or if you develop any dizziness, shortness of breath, difficulty breathing, chest pain, blurry vision, loss of vision, nausea, vomiting, abdominal pain, fever, chills, back pain, or any other complaints. Fan un seguimiento con ascencio proveedor de atenci?n primaria y un especialista en dolor. Regrese al departamento de emergencias de inmediato si varsha s?ntomas empeoran o si presenta mareos, falta de aire, dificultad para respirar, dolor de pecho, visi?n borrosa, p?rdida de la visi?n, n?useas, v?mitos, dolor abdominal, fiebre, escalofr?os, dolor de espalda o cualquier otras quejas. Prescriptions: New prednisone 20 mg tablet 20 mg PO DAILY 7 Days Qty: 7 0RF cyclobenzaprine 5 mg tablet 5 mg PO TID PRN (Reason: back pain) 7 Days Qty: 21 0RF No Action oxycodone-acetaminophen [Percocet] 5-325 mg tablet 1 tab PO Q4-6H PRN (Reason: pain) Qty: 10 0RF Rx Instructions: Narcotic, no driving for 6 hours after taking this medication ibuprofen 600 mg tablet 600 mg PO Q6H PRN (Reason: pain) Qty: 20 0RF cyclobenzaprine 5 mg tablet 5 mg PO TID PRN (Reason: muscle spasm) Qty: 14 0RF Rx Instructions: This medication may cause drowsiness, no driving for 8 hours after taking naproxen [Naprosyn] 500 mg tablet 500 mg PO BID Qty: 20 0RF doxycycline hyclate 100 mg tablet 100 mg PO BID 7 Days Qty: 14 0RF Referrals: Martin Mota MD [Primary Care Provider] - Chacorta Patel MD [Physician] - (Call to establish and follow up with a pain specialist. ) Stand Alone Forms: Work/School Release Interventions: ED Discharge Assessment Last Done: 07/31/22 12:07 Discharge Date/Time: 07/31/22 12:07 Print Language: Luxembourgish
[2022-07-31] MEDS: Ketorolac Tromethamine 15 MG/ML VIAL IM (11:57)
[2022-07-31] MEDS: methylPREDNISolone Sod Succ 125 MG/2 ML VIAL 60 MG IM (11:58)
[2022-07-31] MEDS: Cyclobenzaprine HCl 10 MG TABLET PO (11:58)
== END 2022-07-31 12:07 | disposition home or self-care (01) ==
LOC: HO.ED 11:59
PROVIDERS: Emergency Provider Emergency Medicine; PCP Internal Medicine
DX: M54.50 Low back pain, unspecified (principal)
CPT/HCPCS: 96372; 96374; 99283; 99284; J1885; J2930

== ENCOUNTER 2022-08-05 18:57 | Emergency (ER) | payer OTHER, SELFPAY ==
--- NOTE | ~2022-08-05 | XR_ITS ---
EXAMINATION: XR LUMBOSACRAL SPINE CLINICAL INFORMATION: Low back pain. COMPARISON: None available. TECHNIQUE: Three views of the lumbosacral spine. FINDINGS: There is normal lumbar lordosis. The vertebral heights, alignment and disc heights are normal. No visible fracture, dislocation or subluxation seen. SI joints are symmetrical. XR/XR lumbar spine 2-3V IMPRESSION: Unremarkable lumbar spine examination.
[2022-08-05 19:40] VITALS: BP 127/69; PULSE 85; RESP 18; TEMP 36.9; O2SAT 100; BMI 35.2
--- NOTE | 2022-08-05 19:45 | ED_ITS ---
HPI - General Adult General Chief complaint: Back Pain/Injury <REJI Lucas - Last Filed: 08/18/22 11:36> Stated complaint: left hip and leg pain <REJI Lucas - Last Filed: 08/18/22 11:36> Time Seen by Provider: 08/05/22 20:27 <REJI Lucas - Last Filed: 08/18/22 11:36> Source: patient <Johnie Matias MD - Last Filed: 08/05/22 21:58> Mode of arrival: ambulatory <Johnie Matias MD - Last Filed: 08/05/22 21:58> Limitations: no limitations <Johnie Matias MD - Last Filed: 08/05/22 21:58> History of Present Illness HPI narrative: 56-year-old female presents with low back pain. The pain started about a week to week and half ago. She denies any new injuries. She was seen previously for the same symptoms but her symptoms have been good progressively getting worse. She had been placed on steroids and muscle relaxers which give her diarrhea. Over this period time, she has had increasing low back pain. The pain initially was radiating to right leg is now radiating to both legs. She describes as a sensation of water in her legs with a burning sensation. The symptoms are intermittent. Worse with movement and palpation. She denies any numbness or tingling. She denies any loss of bowel or bladder control. She has no fevers. She has no history of intravenous drug abuse. Patient is having so much pain she is unable to ambulate or put on her socks. She describes her pain as a 10/10. <Johnie Matias MD - Last Filed: 08/05/22 21:58> Related Data Home medications: Previous Rx's Medication Instructions Recorded gabapentin 300 mg capsule 300 mg PO TID #30 caps 08/05/22 meloxicam 15 mg tablet 15 mg PO DAILY #14 tabs 08/05/22 methocarbamol 750 mg tablet 750 mg PO Q8H PRN spasm #10 tabs 08/05/22 oxycodone 5 mg tablet 5 mg PO Q8H PRN pain #10 tabs 08/05/22 <REJI Lucas - Last Filed: 08/18/22 11:36> Allergies/adverse reactions: Allergies Allergy/AdvReac Type Severity Reaction Status Date / Time No Known Allergies Allergy Verified 08/05/22 19:44 <REJI Lucas - Last Filed: 08/18/22 11:36> [facility] Past Medical History Medical History: Medical History Asthma Sleep apnea <REJI Lucas - Last Filed: 08/18/22 11:36> Physical Exam ED Vital Signs: Vital Signs - 24 hr 08/05/22 19:40 Temperature 98.5 F Pulse Rate 85 Respiratory Rate 18 Blood Pressure 127/69 Pulse Oximetry 100 Oxygen Delivery Method Room Air BMI result Body Mass Index 35.2 <REJI Lucas - Last Filed: 08/18/22 11:36> Vital Signs - 24 hr 08/05/22 19:40 Temperature 98.5 F Pulse Rate 85 Respiratory Rate 18 Blood Pressure 127/69 Pulse Oximetry 100 Oxygen Delivery Method Room Air BMI result Body Mass Index 35.2 <Johnie Matias MD - Last Filed: 08/05/22 21:58> Course Course Course Narrative: RME: 56 yold female presents to the ED for low back pain raditing down legs with tingling. patient states pain meds not working. Patient denies URinary/bowel incontinence. Lumbar xray ordered <REJI Lucas - Last Filed: 08/18/22 11:36> Reevaluation(s) Reevaluation #1: X-ray identified no acute injury. Will try Toradol, gabapentin, Tylenol, Valium and re-evaluate patient. Suspect patient has spinal stenosis or disc disease. Patient did report she had an MRI or CT scan about a year ago which identified such injuries. <Johnie Matias MD - Last Filed: 08/05/22 21:58> Time: 20:56 <Johnie Matias MD - Last Filed: 08/05/22 21:58> Reevaluation #2: Patient able to ambulate. She does have pain but is much improved. The pain is no longer constant. Discussed all discharge instructions. She will receive instructions on how to take her medications appropriately. <Johnie Matias MD - Last Filed: 08/05/22 21:58> Time: 21:56 <Johnie Matias MD - Last Filed: 08/05/22 21:58> Medications Administered Discontinued Medications Generic Name Dose Route Start Last Admin Trade Name Freq PRN Reason Stop Dose Admin Acetaminophen 975 mg 08/05/22 20:48 08/05/22 21:08 Acetaminophen 325 Mg Tablet PO 08/05/22 20:49 975 mg ONCE ONE Administration Diazepam 2 mg 08/05/22 20:48 08/05/22 21:08 Diazepam 2 Mg Tablet PO 08/05/22 20:49 2 mg ONCE ONE Administration Gabapentin 300 mg 08/05/22 20:48 08/05/22 21:08 Gabapentin 300 Mg Capsule PO 08/05/22 20:49 300 mg ONCE ONE Administration Ketorolac Tromethamine 30 mg 08/05/22 20:48 08/05/22 21:08 Ketorolac Tromethamine 30 Mg/Ml Vial IM 08/05/22 20:49 30 mg ONCE ONE Administration <REJI Lucas - Last Filed: 08/18/22 11:36> Medications Administered Discontinued Medications Generic Name Dose Route Start Last Admin Trade Name Freq PRN Reason Stop Dose Admin Acetaminophen 975 mg 08/05/22 20:48 08/05/22 21:08 Acetaminophen 325 Mg Tablet PO 08/05/22 20:49 975 mg ONCE ONE Administration Diazepam 2 mg 08/05/22 20:48 08/05/22 21:08 Diazepam 2 Mg Tablet PO 08/05/22 20:49 2 mg ONCE ONE Administration Gabapentin 300 mg 08/05/22 20:48 08/05/22 21:08 Gabapentin 300 Mg Capsule PO 08/05/22 20:49 300 mg ONCE ONE Administration Ketorolac Tromethamine 30 mg 08/05/22 20:48 08/05/22 21:08 Ketorolac Tromethamine 30 Mg/Ml Vial IM 08/05/22 20:49 30 mg ONCE ONE Administration <Johnie Matias MD - Last Filed: 08/05/22 21:58> Medical Decision Making Medical Decision Making MDM Narrative: This patient presents with back pain most consistent with lumbar radiculopathy. Differential diagnoses includes lumbago versus musculoskeletal spasm / strain versus sciatica. No back pain red flags on history or physical. Presentation not consistent with malignancy (lack of history of malignancy, lack of B symptoms), fracture (no trauma, no bony tenderness to palpation), cauda equina (no bowel or urinary incontinence/retention, no saddle anesthesia, no distal weakness), AAA, viscus perforation , pulmonary embolism, renal colic, py elonephritis (afebrile, no CVAT, no urinary symptoms). Given the clinical picture, no indication for imaging at this time Plan: pain control, supportive care, reassess <Johnie Matias MD - Last Filed: 08/05/22 21:58> Differential Diagnosis Differential Diagnoses: The differential diagnosis associated with the presentation includes (Disc disease, spinal stenosis, musculoskeletal pain, muscle spasm, strain, sprain) <Johnie Matias MD - Last Filed: 08/05/22 21:58> Admission/Observation Consideration of admission/observation: Escalation of care including admission/observation considered <Johnie Matias MD - Last Filed: 08/05/22 21:58> Independent Historian Clinical information obtained from an independent historian. History obtained from or confirmed by: Other (Child) <Johnie Matias MD - Last Filed: 08/05/22 21:58> Tests considered The following testing was considered but not selected: MRI spine <Johnie Matias MD - Last Filed: 08/05/22 21:58> Prescription Management I considered prescription management with: Pain Medication <Johnie Matias MD - Last Filed: 08/05/22 21:58> Discharge Plan Discharge Clinical Impression: Lumbar radiculopathy <REJI Lucas - Last Filed: 08/18/22 11:36> Patient Disposition: Home, Self-Care <REJI Lucas - Last Filed: 08/18/22 11:36> Instructions: Lumbar Radiculopathy (ED), Heat Pack Application (ED), Ice Pack Application (ED) <REJI Lucas - Last Filed: 08/18/22 11:36> Additional Instructions: For your pain, I am recommending the following regimen Meloxicam 15 mg daily for 2 weeks Tylenol 1000 mg every 6 hours as needed for additional pain relief Gabapentin 300 mg 3 times a day which may cause some drowsiness Methocarbamol 750 mg every 8 hours as needed for muscle spasm, which may cause drowsiness Oxycodone 5 mg 2-3 times daily as needed for additional pain relief when more severe. This can cause constipation. I am recommending a stool softener as needed. Please be aware that this may cause drowsiness. Your being prescribed 3 medications which is associated with drowsiness that includes gabapentin oxycodone, and methocarbamol. Please be cautious when taking the 3 of these medications together. <REJI Lucas - Last Filed: 08/18/22 11:36> Prescriptions: New meloxicam 15 mg tablet 15 mg PO DAILY Qty: 14 0RF gabapentin 300 mg capsule 300 mg PO TID Qty: 30 0RF methocarbamol 750 mg tablet 750 mg PO Q8H PRN (Reason: spasm) Qty: 10 0RF oxycodone 5 mg tablet 5 mg PO Q8H PRN (Reason: pain) Qty: 10 0RF Rx Instructions: Partial Fill upon patient request. Discontinued oxycodone-acetaminophen [Percocet] 5-325 mg tablet 1 tab PO Q4-6H PRN (Reason: pain) Qty: 10 0RF Rx Instructions: Narcotic, no driving for 6 hours after taking this medication ibuprofen 600 mg tablet 600 mg PO Q6H PRN (Reason: pain) Qty: 20 0RF cyclobenzaprine 5 mg tablet 5 mg PO TID PRN (Reason: muscle spasm) Qty: 14 0RF Rx Instructions: This medication may cause drowsiness, no driving for 8 hours after taking naproxen [Naprosyn] 500 mg tablet 500 mg PO BID Qty: 20 0RF prednisone 20 mg tablet 20 mg PO DAILY 7 Days Qty: 7 0RF cyclobenzaprine 5 mg tablet 5 mg PO TID PRN (Reason: back pain) 7 Days Qty: 21 0RF doxycycline hyclate 100 mg tablet 100 mg PO BID 7 Days Qty: 14 0RF <REJI Lucas - Last Filed: 08/18/22 11:36> Referrals: Mo Sears MD [Physician] - <REJI Lucas - Last Filed: 08/18/22 11:36> Interventions: ED Discharge Assessment Last Done: 08/05/22 22:42 <REJI Lucas - Last Filed: 08/18/22 11:36> Discharge Date/Time: 08/05/22 22:43 <REJI Lucas - Last Filed: 08/18/22 11:36> Print Language: Swazi <REJI Lucas - Last Filed: 08/18/22 11:36>
[2022-08-05] MEDS: Ketorolac Tromethamine 30 MG/ML VIAL IM (21:08)
[2022-08-05] MEDS: Acetaminophen 325 MG TABLET 975 MG PO (21:08)
[2022-08-05] MEDS: diazePAM 2 MG TABLET PO (21:08)
[2022-08-05] MEDS: Gabapentin 300 MG CAPSULE PO (21:08)
== END 2022-08-05 22:43 | disposition home or self-care (01) ==
PROVIDERS: Emergency Provider Emergency Medicine
DX: M54.16 Radiculopathy, lumbar region (principal); Z79.899 Other long term (current) drug therapy
CPT/HCPCS: 72100; 96372; 99283; 99284; J1885

== ENCOUNTER 2022-09-16 11:06 | Outpatient (REF) | payer OTHER, SELFPAY ==
--- NOTE | ~2022-09-16 | XR_ITS ---
EXAMINATION: XR BILATERAL HIPS WITH AP PELVIS CLINICAL INFORMATION: Hip pain. COMPARISON: CT abdomen of 03/28/2021. TECHNIQUE: AP view of the pelvis and 2 views of each hip were obtained. FINDINGS: There is no evidence of acute fracture or diastases of the pelvis. Sacroiliac joints are maintained. There is degenerative disc disease seen at the L5-S1 level. There is a stable sclerotic region seen about the left ischium. The hip joint spaces appear maintained bilaterally. 2 views of the right hip do not demonstrate any evidence of acute fracture or dislocation. Hip joint spaces maintained without significant spurring. No sclerotic or lytic lesion is seen within the femoral head and no femoral head collapse is noted. 2 views of the left hip do not demonstrate any evidence of acute fracture or dislocation. Hip joint space is maintained without significant degenerative change. No abnormal lytic or sclerotic lesions within the femoral head identified. XR/XR hip BI w PEL1V IMPRESSION: No significant bony abnormality of the pelvis or hips identified.
== END 2022-09-16 11:07 | disposition home or self-care (01) ==
LOC: HO.XRAY 11:06
PROVIDERS: PCP Internal Medicine; Visit Provider Nurse Practitioner Family
DX: M47.26 Other spondylosis with radiculopathy, lumbar region (principal); M25.552 Pain in left hip; G89.29 Other chronic pain; M62.830 Muscle spasm of back; Z79.899 Other long term (current) drug therapy
CPT/HCPCS: 73521; 99202

== ENCOUNTER 2025-03-27 10:04 | Emergency (ER) | payer OTHER, SELFPAY ==
--- NOTE | ~2025-03-27 | CT_ITS ---
CLINICAL HISTORY: LLQ pain, Lumbar pain s p heavy lifting Exam: Contrast-enhanced CT abdomen and pelvis with multiplanar reformats. Comparison: None. Findings: CT abdomen: Lung bases are clear. Liver reveals a tiny subcentimeter segment 6 hypodensity (5; 171), too small to characterize although possible tiny cyst. No other focal lesions or ductal dilatation. Gallbladder appears unremarkable. Spleen appears unremarkable. Pancreas and adrenal glands appear unremarkable. Kidneys appear unremarkable. No free intraperitoneal fluid or retroperitoneal masses or adenopathy. Abdominal aorta is normal caliber. Bowel loops reveal no abnormal wall thickening or distention. No significant diverticular disease. The appendix is unremarkable. CT pelvis: Uterus and adnexal structures appear unremarkable. Urinary bladder is free of gross filling defects. No pelvic masses, fluid or adenopathy. Osseous structures reveal no fractures or traumatic malalignment. There is very slight vertebral body spurring at L5-S1 and perhaps to a lesser degree L3-L4. Lumbar intervertebral disc heights appear maintained. Lower thoracic vertebral body spurring is present. Impression: 1. Other than mild lumbar degenerative disease, no acute abnormalities or CT explanation for reported history of lumbar pain and left lower quadrant pain. This document has been electronically signed by: Helio Philippe MD on 03/27/2025 13:41:24
[2025-03-27 10:16] VITALS: BP 148/91; PULSE 84; RESP 16; TEMP 36.8; O2SAT 95; BMI 37.3
--- NOTE | 2025-03-27 11:27 | ED_ITS ---
HPI - Back Pain/Injury General Chief Complaint: Back Pain/Injury Stated Complaint: low back pain Time Seen by Provider: 03/27/25 11:26 Source: patient and RN notes reviewed Mode of arrival: ambulatory Limitations: no limitations History of Present Illness ED Provider: Rosenda Kinney PA-C HPI Narrative: This is a 59-year-old female who presents emergency department with concerns of acute on chronic low back pain which started yesterday. Patient states that she lifted a mattress and felt worsening back pain. She has a history of 3 herniated lumbar disc which with the diagnosed with long time ago. She states that she previously would receive back injections for her pain. She states that this morning she was unable to ambulate independently due to the pain. She required her friends assistance to get out of bed, into the car, and into the emergency room. States that she is able to take a few steps. She previously was given the option for surgical intervention versus nonoperative management, no surgery has been performed. She does report that she has had some mild left lower abdominal pain, as well as some urinary frequency, urgency, dysuria. No hematuria. She denies any fevers, chills, chest pain, shortness of breath, nausea or vomiting. No diarrhea Related Data Home Medications ?Medication ?Instructions ?Recorded ?Confirmed albuterol sulfate 2.5 mg/3 mL 2.5 mg inhalation Q6H (0.083 %) solution for nebulization albuterol sulfate 90 mcg/actuation 2 puff inhalation Q 6H PRN 09/16/22 aerosol inhaler (Ventolin HFA) atorvastatin 20 mg tablet 20 mg PO DAILY 09/16/22 clotrimazole-betamethasone 1 1 appl topical BID %-0.05 % topical cream duloxetine 30 mg capsule,delayed 30 mg PO DAILY release (Cymbalta) fluticasone propionate 230 2 puff inhalation BID 09/16 mcg-salmeterol 21 mcg/actuation HFA inhaler (Advair HFA) loratadine 10 mg tablet (Claritin) 10 mg PO DAILY 01/01 losartan 100 mg tablet 100 mg PO DAILY 09/16/22 mirtazapine 15 mg tablet (Remeron) 15 mg PO BEDTIME naproxen 500 mg tablet 500 mg PO BID 09/16/22 topiramate 100 mg tablet (Topamax) 100 mg PO DAILY 01/01 triamcinolone acetonide 55 mcg 1 spray intranasal LOUIE Y 09/16/22 nasal spray aerosol (Nasacort) Previous Rx's ?Medication ?Instructions ?Recorded lidocaine 5 % topical patch 1 patch topical DAILY pain #30 ea 09/16/22 acetaminophen 500 mg tablet 1,000 mg (2 x 500 mg) PO Q 8H PRN 03/27/25 (Tylenol Extra Strength) pain #30 tabs cyclobenzaprine 10 mg tablet 10 mg PO TID PRN muscle s pasm #14 03/27/25 tabs ibuprofen 600 mg tablet 600 mg PO Q6H PRN pain #30 t abs 03/27/25 Allergies Allergy/AdvReac Type Severity Reaction Status Date / Time No Known Allergies Allergy Verified 03/27/25 10:17 Review of Systems 2 Review of Systems: Constitutional : No Fever, No Chills ENT/Mouth : No sore throat, No Rhinorrhea Eyes: No Eye Pain, No Swelling, No Redness Cardiovascular : No Chest Pain, No SOB Respiratory : No Cough, No Sputum Gastrointestinal : No Nausea, No Vomiting, No Diarrhea, No abdominal Pain Genitourinary : No Dysuria, No Hematuria Musculoskeletal : No joint pain, No Myalgias, No Joint Swelling, +back pain Skin : No Skin Lesions Neuro : No Weakness, No Numbness, No Headache All other systems reviewed and are negative Yes all other systems are reviewed and are negative Constitutional: Constitutional: Reports as per [facility] Past Medical History Medical History (Updated 03/27/25 @ 15:20 by REJI Casiano) Anxiety Major depression Severe obesity Migraines Hypoxemia Obstructive sleep apnea Carpal tunnel syndrome Hypertension Chronic lower back pain Constipation Sleep apnea Asthma Physical Exam 2 Vital Signs: Vital Signs: Last Vital Signs Temp 0 F L 03/27/25 15:42 Pulse 68 03/27/25 15:42 Resp 16 03/27/25 15:42 BP 137/81 03/27/25 15:42 Pulse Ox 98 03/27/25 15:42 O2 Del Method Room Air 03/27/25 15:42 BMI result Body Mass Index 37.3 Const: General: cooperative, comfortable and no acute distress O rientation/consciousness: patient oriented x3 Limitations: no limitations HEENT: Head: Yes normal to inspection, Yes normocephalic and Yes atraumatic Ears: hearing grossly normal bilaterally General nose exam: Normal external nose present Face and sinus: Yes normal facial exam Mouth: Normal oral and palatal mucosa present, oropharynx normal and moist mucous membranes Throat: Yes posterior oropharynx normal Eyes: General: appearance normal, both eyes and all related structures E yelids: Yes eyelids normal Conjunctivae: conjunctivae normal Sclerae: s clerae normal Pupils: Equal, round and reactive pupils present EOM: EOMs intact bilaterally Neck: Neck: Yes normal visual inspection, Yes full ROM and Yes no lymphadenopathy Lymphatic: no lymphadenopathy noted Chest: Chest palpation & inspection: normal inspection of the chest Resp: Effort & Inspection: normal respiratory effort and able to speak in complete sentences Auscultation: clear to auscultation bilaterally, no crackles, no rales, no rhonchi and no wheezes Cardio: Rate: regular rate Rhythm: regular rhythm Heart sounds: S1 normal heart sound present and S2 normal heart sound present GI: Other: Mild ttp in the left lower quadrant, no rebound or guarding. Inspection: Yes normal to inspection Back/Spine/Pelvis: Other: TTP overlying BL lumbar musculature. Strength 5/5 in LE. DTRs 2+. No pedal edema. Sensation intact. No calf tenderness. Skin: General skin exam: no rashes or lesions noted Trauma: no lacerations or abrasions Wounds: no wounds Neuro: General: patient oriented x3 and moves all extremities Cranial nerves: Yes Equal, round and reactive pupils present Extrem: General: Yes normal to inspection Right upper extremity: normal to inspection Left upper extremity: normal to inspection Right lower extremity: normal to inspection Left lower extremity: normal to inspection Medications Administered Discontinued Medications Generic Name Dose Route Start Last Admin Trade Name Freq PRN Reason Stop Dose Admin Diazepam 2.5 mg 03/27/25 11:50 03/27/25 12:05 Diazepam 10 Mg/2 Ml Cartridge IVPUSH 03/27/25 11:51 2.5 mg STAT STA Administration Acetaminophen 1,000 mg in 100 mls @ 400 mls/hr 03/27/25 11:50 03/27/25 12:20 Ofirmev IV 03/27/25 12:04 Infused ONCE ONE Infusion Iohexol 85 ml 03/27/25 12:47 03/27/25 12:47 Iohexol 350 Mg/Ml 100 Ml Infus..Btl IV 03/27/25 12:48 85 ml ONCE ONE Administration Methylprednisolone Sodium Succinate 60 mg 03/27/25 11:50 03/27/25 12:05 Methylprednisolone Sod Succ 125 Mg/2 Ml Vial IVPUSH 03/27/25 11:51 60 mg ONCE ONE Administration Medical Decision Making Medical Decision Making [facility] Narrative: This is a 59-year-old female who presents emergency department with concerns of acute on chronic low back pain which started yesterday. Patient states that she lifted a mattress and felt worsening back pain. This patient presents with back pain most consistent with lumbar straian Differential diagnoses includes lumbago versus musculoskeletal spasm / strain versus sciatica. No back pain red flags on history or physical. Presentation not consistent with malignancy (lack of history of malignancy, lack of B symptoms), fracture (no trauma, no bony tenderness to palpation), cauda equina syndrome (no bowel or urinary incontinence/retention, no saddle anesthesia, no distal weakness), AAA, viscus perforation , pulmonary embolism, renal colic. She does report that she has had some mild left lower abdominal pain, as well as some urinary frequency, urgency, dysuria. No hematuria. Given this, will obtain labs, EKG, CT abd to r/o any acute pathology. Will also medicate with valium, solu-medrol, and tylenol. >> Labs return with no leukocytosis, stable H&H, chem WNL, UA with mderate blood, rbcs and squamous cells - discussed the possibility of ?recent kidney stone passage vs contamination. No evidence of infection. CT revealing Other than mild lumbar degenerative disease, no acute abnormalities. Pt's symptoms consistent with lumbar strain d/t heavy lifting yesterday. Pt ambulatory in the ED, walking back and forth to bathroom steadily. Will d/c with strict return precautions. She understands and agrees with plan. Pt stable for d.c. Differential Diagnosis Differential Diagnoses: The differential diagnosis associated with the presentation includes see above Admission/Observation Consideration of admission/observation: Escalation of care including admission/observation considered Lab Data [facility] Lab Attestation statement: I reviewed the patient's lab results. see [facility] 03/27/25 12:04 03/27/25 12:04 Labs: Lab Results 11/16/25 11/16/25 Range/Units 12:04 14:24 WBC 9.8 (4.8-10.8) X10*3/uL RBC 4.69 (4.20-5.50) X10*6/uL Hgb 13.9 (12.0-16.0) g/dl Hct 42.6 (37.0-47.0) % MCV 90.8 (80.0-98.0) fL MCH 29.6 (27.0-33.0) pg MCHC 32.6 (31.0-35.0) g/dl RDW 12.8 (11.0-16.0) % Plt Count 279 (160-400) X10*3/uL MPV 9.3 L (9.4-12.3) fL Immature Gran % (Auto) 0.3 (0.0-0.4) % Neut % (Auto) 70.8 (45-73) % Lymph % (Auto) 21.3 (20-40) % [place] % (Auto) 6.5 (2-11) % Eos % (Auto) 0.8 (0-4) % Baso % (Auto) 0.3 (0-2) % Lymph # (Auto) 2.1 (1.2-4.9) X10*3/uL [place] # (Auto) 0.6 (0.1-1.2) X10*3/uL Eos # (Auto) 0.1 (0.0-0.4) X10*3/uL Baso # (Auto) 0.0 (0.0-0.2) X10*3/uL Abs Immat Gran (auto) 0.03 (0.00-0.03) X10*3/uL Absolute Neuts (auto) 6.9 (2.0-8.3) x10*3/uL Absolute Nucleated RBC 0.000 (0.0-0.012) X10*3/uL Nucleated RBC % (auto) 0.0 (0.0-0.2) /100WBC PT 13.3 (11.2-13.5) SEC INR 1.1 (0.9-1.1) Sodium 141 (135-145) mmol/L Potassium 4.1 (3.3-5.1) mmol/L Chloride 107 (96-108) mmol/L Carbon Dioxide 27 (22-29) mmol/L Anion Gap 11 L (12-20) BUN 13 (9-16) mg/dL Creatinine 0.78 (0.5-1.4) mg/dL Estim Creat Clear Calc 97.3 Estimated GFR > 60 Random Glucose 98 (60-115) mg/dL Calcium 9.8 (8.4-10.2) mg/dL Magnesium 2.0 (1.6-2.6) mg/dL Total Bilirubin 0.7 (0.0-1.0) mg/dL Direct Bilirubin 0.2 (0.0-0.5) mg/dL AST 19 (5-31) U/L ALT 12 (0-31) U/L Alkaline Phosphatase 82 (39-117) U/L Troponin I High Sens 2.7 (<3.5-17.0) ng/L Total Protein 7.6 (6.5-8.0) g/dL Albumin 4.4 (3.5-5.0) g/dL Urine Color Yellow Urine Appearance Clear Urine pH 5.5 (5.0-9.0) Ur Specific [place] >= 1.030 H (1.005-1.025) Urine Protein Negative (Neg-Trace) mg/dL Urine Glucose (UA) Negative (Negative) mg/dL Urine Ketones Negative (Negative) mg/dL Urine Blood Moderate (2+) H (Negative) Urine Nitrite Negative (Negative) Ur Leukocyte Esterase Negative (Negative) Urine RBC 6-10 H (0-2) /HPF Urine WBC 0-5 (0-5) /HPF Ur Squamous Epith Cells 3-5 (0-2) /HPF Urine Bacteria Trace (None Seen) Hyaline Casts 0-2 (0-2) /LPF Independent Interpretation I performed an independent interpretation of an: EKG Interpretation: EKG NSR with sinus arrhythmia, ventricular rat of 79bpm, no STEMI, similar appearing EKG frrom prervious. Radiology Impression Discussion of test interpretation with radiology: I have reviewed the radiologist's reading. Radiologist Impression: CLINICAL HISTORY: LLQ pain, Lumbar pain s p heavy lifting Exam: Contrast-enhanced CT abdomen and pelvis with multiplanar reformats. Comparison: None. Findings: CT abdomen: Lung bases are clear. Liver reveals a tiny subcentimeter segment 6 hypodensity (5; 171), too small to characterize although possible tiny cyst. No other focal lesions or ductal dilatation. Gallbladder appears unremarkable. Spleen appears unremarkable. Pancreas and adrenal glands appear unremarkable. Kidneys appear unremarkable. No free intraperitoneal fluid or retroperitoneal masses or adenopathy. Abdominal aorta is normal caliber. Bowel loops reveal no abnormal wall thickening or distention. No significant diverticular disease. The appendix is unremarkable. CT pelvis: Uterus and adnexal structures appear unremarkable. Urinary bladder is free of gross filling defects. No pelvic masses, fluid or adenopathy. Osseous structures reveal no fractures or traumatic malalignment. There is very slight vertebral body spurring at L5-S1 and perhaps to a lesser degree L3-L4. Lumbar intervertebral disc heights appear maintained. Lower thoracic vertebral body spurring is present. Impression: 1. Other than mild lumbar degenerative disease, no acute abnormalities or CT explanation for reported history of lumbar pain and left lower quadrant pain. This document has been electronically signed by: Helio Philippe MD on 03/27/2025 13:41:24 Dictated By: Helio Philippe MD Discharge Plan Discharge Clinical Impression: Back pain, Lumbar radiculopathy Patient Disposition: Home, Self-Care Instructions: Acute Low Back Pain (ED) Additional Instructions: You were seen in the emergency department due to back pain. Your overall workup today was reassuring. Your urine does show some blood, however does not appear to be infected. Please follow-up with your primary care physician. Your CT scan does show this is some degenerative changes in your back. You likely are suffering from a back strain, this can take several days of to several weeks for it to resolve. Please drink plenty of fluids get plenty of rest. Gentle stretching, heat or ice, and massage can be beneficial. Take ibuprofen and or Tylenol as needed for pain and symptoms. Flexeril can also provide you with pain relief, this is a muscle relaxants, please be advised that this can cause drowsiness, do not drink alcohol or drive while taking this medication. If any new or worsening symptoms occur including but not limited to severe chest pain, shortness for breath, severe abdominal pain, back pain, please seek emergent care. Prescriptions: New ibuprofen 600 mg tablet 600 mg PO Q6H PRN (Reason: pain) Qty: 30 0RF cyclobenzaprine 10 mg tablet 10 mg PO TID PRN (Reason: muscle spasm) Qty: 14 0RF acetaminophen [Tylenol Extra Strength] 500 mg tablet 1,000 mg PO Q8H PRN (Reason: pain) Qty: 30 0RF No Action albuterol sulfate 2.5 mg /3 mL (0.083 %) solution for nebulization 2.5 mg inhalation Q6H atorvastatin 20 mg tablet 20 mg PO DAILY clotrimazole-betamethasone 1-0.05 % cream 1 appl topical BID fluticasone propion-salmeterol [Advair HFA] 230-21 mcg/actuation HFA aerosol inhaler 2 puff inhalation BID losartan 100 mg tablet 100 mg PO DAILY topiramate [Topamax] 100 mg tablet 100 mg PO DAILY albuterol sulfate [Ventolin HFA] 90 mcg/actuation HFA aerosol inhaler 2 puff inhalation Q6H PRN mirtazapine [Remeron] 15 mg tablet 15 mg PO BEDTIME naproxen 500 mg tablet 500 mg PO BID duloxetine [Cymbalta] 30 mg capsule,delayed release(DR/EC) 30 mg PO DAILY loratadine [Claritin] 10 mg tablet 10 mg PO DAILY triamcinolone acetonide [Nasacort] 55 mcg aerosol,spray 1 spray intranasal DAILY Rx Instructions: administer into each nostril lidocaine 5 % adhesive patch,medicated 1 patch topical DAILY Qty: 30 0RF Rx Instructions: Apply to affected area up to 12 hours per day Interventions: ED Discharge Assessment Last Done: 03/27/25 15:42 Discharge Date/Time: 03/27/25 15:43 Print Language: [place]
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
--- NOTE | 2025-03-27 11:50 | ECG_ITS ---
Test Reason : CP Blood Pressure : */* mmHG Vent. Rate : 79 BPM Atrial Rate : 79 BPM P-R Int : 148 ms QRS Dur : 82 ms QT Int : 384 ms P-R-T Axes : 44 -6 4 degrees QTcB Int : 440 ms Normal sinus rhythm with sinus arrhythmia Normal ECG When compared with ECG of 11-Aug-2021 21:46, No significant change was found Referred By: Rosenda Kinney Electronically Signed By: ANGELA OSCAR
[2025-03-27] MEDS: diazePAM 10 MG/2 ML CARTRIDGE 2.5 MG IVPUSH (12:05)
[2025-03-27 12:13] VITALS: PULSE 85; RESP 18; O2SAT 98
[2025-03-27 12:13] LABS: MANUAL DIFF FLAG NO
[2025-03-27 12:14] LABS: Hematocrit 42.6 % (37.0-47.0); Hemoglobin 13.9 g/dl (12.0-16.0); Imm Gran Abs Auto 0.03 X10*3/uL (0.00-0.03); Imm Gran Pct Auto 0.3 % (0.0-0.4); Lymphocytes Absolute Auto 2.1 X10*3/uL (1.2-4.9); Mean Corpuscular HGB Conc 32.6 g/dl (31.0-35.0); Mean Corpuscular Hemoglobin 29.6 pg (27.0-33.0); Mean Corpuscular Volume 90.8 fL (80.0-98.0); NRBC Abs Auto 0.000 X10*3/uL (0.0-0.012); NRBC Pct Auto 0.0 /100WBC (0.0-0.2); Platelet Count 279 X10*3/uL (160-400); Red Blood Count 4.69 X10*6/uL (4.20-5.50); White Blood Count 9.8 X10*3/uL (4.8-10.8)
[2025-03-27 12:23] LABS: INTERNATIONAL NORM RATIO 1.1 (0.9-1.1); Prothrombin Time 13.3 SEC (11.2-13.5)
[2025-03-27 12:30] VITALS: BP 151/76; PULSE 77; RESP 16; TEMP 36.8; O2SAT 95
[2025-03-27 12:33] LABS: Alanine Aminotransferase 12 U/L (0-31); Albumin Level 4.4 g/dL (3.5-5.0); Alkaline Phosphatase 82 U/L (39-117); Anion Gap 11 (12-20); Aspartate Amino Transferase 19 U/L (5-31); Blood Urea Nitrogen 13 mg/dL (9-16); Calcium 9.8 mg/dL (8.4-10.2); Carbon Dioxide 27 mmol/L (22-29); Chloride 107 mmol/L (96-108); Creatinine Clr Calc Pharmacy 97.3; Estimated Glomerular Filt Rate > 60; Magnesium 2.0 mg/dL (1.6-2.6); Potassium 4.1 mmol/L (3.3-5.1); Sodium 141 mmol/L (135-145); Total Protein 7.6 g/dL (6.5-8.0)
[2025-03-27 12:43] LABS: Troponin-I High Sensitivity 2.7 ng/L (<3.5-17.0)
[2025-03-27] MEDS: iohexoL 350 MG/ML 100 ML INFUS..BTL 85 ML IV (12:47)
[2025-03-27 14:23] VITALS: BP 137/81; PULSE 68; RESP 16; O2SAT 98
[2025-03-27 14:32] LABS: Appearance Urine Clear; Glucose Urine UA Negative (Negative); PH 5.5 (5.0-9.0); Specific Gravity - Urine >= 1.030 (1.005-1.025); UMIC TRIGGER UACC YES
[2025-03-27 15:42] VITALS: BP 137/81; PULSE 68; RESP 16; TEMP -17.7; TEMP 0; O2SAT 98
== END 2025-03-27 15:43 | disposition home or self-care (01) ==
PROVIDERS: Physician Assistant Medical; Emergency Provider Emergency Medicine; PCP Internal Medicine
DX: M54.16 Radiculopathy, lumbar region (principal); M54.50 Low back pain, unspecified; R10.32 Left lower quadrant pain; R35.0 Frequency of micturition; I10 Essential (primary) hypertension
CPT/HCPCS: 36415; 74177; 80048; 80076; 81001; 83735; 84484; 85025; 85610; 93005; 96374; 96375; 99285; J0131; J2919; J3360; Q9967

== ENCOUNTER → 2025-03-27 11:50 | Outpatient (BNV) | payer OTHER, SELFPAY | PROVIDERS: Emergency Provider Emergency Medicine; PCP Internal Medicine; Visit Provider Radiology Diagnostic Radiology | DX: R10.32 Left lower quadrant pain (principal); M54.50 Low back pain, unspecified; X50.0XXA Overexertion from strenuous movement or load, initial encounter | CPT/HCPCS: 74177 ==

== ENCOUNTER → 2025-03-27 11:50 | Outpatient (BNV) | payer OTHER, SELFPAY | PROVIDERS: Emergency Provider Emergency Medicine; PCP Internal Medicine; Visit Provider Internal Medicine | DX: R07.9 Chest pain, unspecified (principal) | CPT/HCPCS: 93010 ==